=== PATIENT | male | born 1990 | race Caucasian/White ===

== ENCOUNTER 2016-12-28 15:54 | Emergency (ER) | payer OTHER ==
[~2016-12-28] VITALS: Ht 188 cm; Wt 57.8 kg
[~2016-12-28 15:54] MED LIST: ACETTAB14 PO; MAGN250T8 PO
[2016-12-28 15:56] VITALS: TEMP 36.7; Ht 188 cm; Wt 57.8 kg
[2016-12-28] MEDS ORDERED: SODIUM CHLORIDE 0.9% 1000ML 1,000 ML IV STA (16:38)
[2016-12-28] MEDS ORDERED: LORAZEPAM 0.5 MG TAB SL STA (16:38)
--- NOTE | 2016-12-28 16:42 | EMERGENCY ROOM VISIT NOTE ---
History Report prepared by Belinda: Velasquez Pierce Under the Supervision of: Dr. Jose Xavier M.D. First contact with patient: 16:32 Chief Complaint: CHEST PAIN Stated Complaint: CHEST PAINS,BACK AND L ARM PAIN,MARFANS SYNDROM Nursing Triage Summary: Intermittent CP last night into left arm and left shoulder. History of anxiety and thought it may be that. Also has been told he has a marker for Marfans syndrome and could be a dissection. History of Present Illness The patient is a 26 year old male with a history of anxiety who presents to the Emergency Room with complaints of intermittent left-sided chest pain that started last night. He says that the pain started on his left side, and would bounce around, and occasionally radiate to his left arm and left upper back. The patient describes the pain as sharp and stabbing. He notes that he first attributed his symptoms to his anxiety, but he was told a few years ago by a physician that he had all the physical markers of Marfan's syndrome, but he was never diagnosed. He says that he saw a water quality tester at the time, and everything checked out fine. The patient says that he has had some fatigue and shakiness as well. He states that he is here for "peace of mind". Currently, he says that the pain is coming and going. The patient denies any loss of consciousness, swelling in ankles, or recent falls or injuries. He says that he has had EKG's done and CT scans over the past couple years. The patient denies any recreational drug use. Source of History: patient Onset: Last night Position: chest (left) Quality: sharp, stabbing Timing: intermittent Associated Symptoms: + back pain, + fatigue, No LOC Note: Associated symptoms: Radiation of pain to left arm intermittently. Shakiness. Denies ankle swelling. Review of Systems See HPI for pertinent positives & negatives. A total of 10 systems reviewed and were otherwise negative. Past Medical & Surgical Medical Problems: (1) Anxiety (2) Marfan syndrome Family History Heart disease Social History Smoking Status: Current Every Day Smoker Marital Status: single Occupation Status: unemployed Current/Historical Medications Scheduled PRN Acetaminophen (Tylenol), 500 MG PO UD PRN for Pain or Fever Lorazepam (Ativan), 0.5-1 MG PO HS PRN for Anxiety Allergies Coded Allergies: No Known Allergies (Unverified , 07/19/15) Physical Exam Vital Signs Date Time Temp Pulse Resp B/P (MAP) Pulse Ox O2 Delivery O2 Flow Rate FiO2 12/28/16 18:39 73 16 100 12/28/16 18:00 51 16 116/61 98 Room Air 12/28/16 15:59 99 Room Air 12/28/16 15:56 36.7 85 16 134/77 97 Room Air Physical Exam GENERAL: Patient is moderately anxious appearing and in no acute distress. Marfanoid appearance. HEENT: No acute trauma, normocephalic atraumatic, mucous membranes moist, no nasal congestion, no scleral icterus. NECK: No stridor, no adenopathy, no meningismus, trachea is midline. LUNGS: No dyspnea. Clear to auscultation and equal bilaterally. No wheeze, no rhonchi. HEART: Regular rate and rhythm. No murmurs, rubs, gallops appreciated. ABDOMEN: Soft, nontender, bowel sounds positive, no masses appreciated, no peritonitis. BACK: No midline tenderness, no CVA tenderness EXTREMITIES: Long extremities, skinny. Normal motion all extremities, no cyanosis, no edema. NEUROLOGIC: Alert and oriented, no acute motor or sensory deficits, no focal weakness, cranial nerves grossly intact. SKIN: No rash, no jaundice, no diaphoresis. Medical Decision & Procedures ER Provider Diagnostic Interpretation: X ray results are stated below per my interpretation and the radiologist's interpretation. CHEST ONE VIEW PORTABLE CLINICAL HISTORY: Chest pain. Back pain. Marfan's syndrome. COMPARISON STUDY: Chest radiograph and CTA of the chest, abdomen and pelvis July 19, 2015. FINDINGS: There is no pneumothorax or pleural effusion. Cardiomediastinal silhouette is normal. There is no evidence of pulmonary edema. No consolidation is identified. The appearance of the chest is unchanged. IMPRESSION: No acute cardiopulmonary findings. Electronically signed by: Vincent Rocha M.D. 12/28/2016 5:53 PM Dictated Date/Time: 12/28/2016 5:52 PM Laboratory Results 12/28/16 16:50 Red Blood Count 5.22, Mean Corpuscular Volume 85.4, Mean Corpuscular Hemoglobin 31.6, Mean Corpuscular Hemoglobin Concent 37.0, Mean Platelet Volume 9.5, Neutrophils (%) (Auto) 58.2, Lymphocytes (%) (Auto) 27.0, Monocytes (%) (Auto) 9.2, Eosinophils (%) (Auto) 4.0, Basophils (%) (Auto) 1.4, Neutrophils # (Auto) 2.45, Lymphocytes # (Auto) 1.14, Monocytes # (Auto) 0.39, Eosinophils # (Auto) 0.17, Basophils # (Auto) 0.06 12/28/16 16:50 Test 12/28/16 16:50 White Blood Count 4.22 K/uL (4.8-10.8) Red Blood Count 5.22 M/uL (4.7-6.1) Hemoglobin 16.5 g/dL (14.0-18.0) Hematocrit 44.6 % (42-52) Mean Corpuscular Volume 85.4 fL (80-100) Mean Corpuscular Hemoglobin 31.6 pg (25-34) Mean Corpuscular Hemoglobin Concent 37.0 g/dl (32-36) Platelet Count 181 K/uL (130-400) Mean Platelet Volume 9.5 fL (7.4-10.4) Neutrophils (%) (Auto) 58.2 % Lymphocytes (%) (Auto) 27.0 % Monocytes (%) (Auto) 9.2 % Eosinophils (%) (Auto) 4.0 % Basophils (%) (Auto) 1.4 % Neutrophils # (Auto) 2.45 K/uL (1.4-6.5) Lymphocytes # (Auto) 1.14 K/uL (1.2-3.4) Monocytes # (Auto) 0.39 K/uL (0.11-0.59) Eosinophils # (Auto) 0.17 K/uL (0-0.5) Basophils # (Auto) 0.06 K/uL (0-0.2) RDW Standard Deviation 38.1 fL (36.4-46.3) RDW Coefficient of Variation 12.3 % (11.5-14.5) Immature Granulocyte % (Auto) 0.2 % Immature Granulocyte # (Auto) 0.01 K/uL (0.00-0.02) D-Dimer < 190 ug/L FEU (0-500) Anion Gap 3.0 mmol/L (3-11) Est Creatinine Clear Calc Drug Dose 103.3 ml/min Estimated GFR () 136.1 Estimated GFR (Non- 117.5 BUN/Creatinine Ratio 7.8 (10-20) Calcium Level 9.8 mg/dl (8.5-10.1) Troponin I < 0.015 ng/ml (0-0.045) Laboratory results as reviewed by me. Medications Administered Medications (Trade) Dose Ordered Sig/Olena Route Start Time Stop Time Status Last Admin Dose Admin Sodium Chloride 1,000 ml @ 999 mls/hr Q1H1M STAT IV 12/28/16 16:38 12/28/16 17:38 DC 12/28/16 17:18 999 MLS/HR Lorazepam (Ativan Tab) 0.5 mg NOW STAT SL 12/28/16 16:38 12/28/16 16:40 DC 12/28/16 17:17 0.5 MG ECG Indication: chest pain Rate (beats per minute): 83 Rhythm: normal sinus Findings: no acute ischemic change, no ectopy, other (incomplete RBBB) Change: no significant change (compared to 07/19/15) ED Course 1633: The patient was evaluated in room A12B. A complete history and physical exam was performed. 1638: Ordered Ativan Tab 0.5 mg SL, NSS 1000 ml @ 999 mls/hr IV. 1820: I reevaluated the patient and he is feeling well and much better after the Ativan. He will see his primary care physician later this week. The patient verbally expressed understanding and agreement of the treatment plan. The patient will be discharged. Medical Decision Differential: Cardiac Ischemia (STEMI, NSTEMI, Unstable Angina, etc), Aortic Dissection, Arrhythmia, Pulmonary Embolism, Pneumonia, Pneumothorax, MSK, Infectious, Pericarditis/Myocarditis, Esophageal Rupture, Gastrointestinal, amongst other pathologies entertained. 26 yr old male with Marfan findings though previous echo and CT chest with normal aorta arrives anxious regarding periodic vague chest pain to back/ shoulder that he admits is similar to previous anxiety episode. He has normal cxr, normal labs (including normal dimer), and normal EKG. He has resolution of symptoms and feeling better with ativan. Notes ativan worked well in past for anxiety issues and will follow with PCP later this week for re-eval. Reviewed symptoms requiring return. With unchanged CXR, lack of further symptoms, and adding on fact dimer is negative I feel dissection is very low and that risks CTA outweigh benefits. Medication Reconcilliation Current Medication List: was personally reviewed by me Blood Pressure Screening Patient's blood pressure: Normal blood pressure Impression Primary Impression: Intermittent left-sided chest pain Additional Impressions: Anxiety about health Anxiety Stress Scribe Attestation The scribe's documentation has been prepared under my direction and personally reviewed by me in its entirety. I confirm that the note above accurately reflects all work, treatment, procedures, and medical decision making performed by me. Departure Information Dispostion Home / Self-Care Prescriptions Lorazepam (ATIVAN) 1 Mg Tab 0.5-1 MG PO HS Y for Anxiety, #10 TAB Prov: Jose Xavier M.D. 12/28/16 Referrals No Doctor, Assigned (PCP) Patient Instructions Anxiety Disorder, ED Chest Pain Atypical Unkn Cause, My [facility] Additional Instructions You have received a benzodiazepine anxiety medication prescription. These medications may cause drowsiness and should not be used with other sedative medications. Do not drive, drink alcohol, perform dangerous activities, nor make important decisions after taking these medications. FPC use or inappropriate use may lead to addiction. Problem Qualifiers
[2016-12-28 17:01] LABS: BASO % 1.4 %; BASO ABS # 0.06 K/uL (0-0.2); COMPLETE YES; HEMATOCRIT 44.6 % (42-52); IG% 0.2 %; LYMPH ABS # 1.14 K/uL (1.2-3.4); MEAN CELL VOLUME 85.4 fL (80-100); MEAN CORPUSCULAR HEMOGLOBIN 31.6 pg (25-34); MEAN PLATELET VOLUME 9.5 fL (7.4-10.4); MONO % 9.2 %; NEUT % 58.2 %; PLATELET COUNT 181 K/uL (130-400); RED BLOOD COUNT 5.22 M/uL (4.7-6.1); WHITE BLOOD COUNT 4.22 K/uL (4.8-10.8)
[2016-12-28 17:17] LABS: BLOOD UREA NITROGEN 7 mg/dl (7-18); BUN/CREATININE RATIO 7.8 (10-20); CALCIUM 9.8 mg/dl (8.5-10.1); CARBON DIOXIDE 31 mmol/L (21-32); CHLORIDE 107 mmol/L (98-107); CREATININE 0.87 mg/dl (0.60-1.40); GLUCOSE 92 mg/dl (70-99); POTASSIUM 3.8 mmol/L (3.5-5.1); SODIUM 141 mmol/L (136-145)
--- NOTE | 2016-12-28 17:55 | DIAGNOSTIC IMAGING REPORT ---
CHEST ONE VIEW PORTABLE CLINICAL HISTORY: Chest pain. Back pain. Marfan's syndrome. COMPARISON STUDY: Chest radiograph and CTA of the chest, abdomen and pelvis July 19, 2015. FINDINGS: There is no pneumothorax or pleural effusion. Cardiomediastinal silhouette is normal. There is no evidence of pulmonary edema. No consolidation is identified. The appearance of the chest is unchanged. IMPRESSION: No acute cardiopulmonary findings. Electronically signed by: Vincent Rocha M.D. 12/28/2016 5:53 PM Dictated Date/Time: 12/28/2016 5:52 PM
[2016-12-28 18:00] VITALS: BP 116/61
[2016-12-28] MEDS ORDERED: ATV/1 PO (18:24)
[2016-12-28 18:39] VITALS: PULSE 73; O2SAT 100
== END 2016-12-28 18:39 | disposition home or self-care (01) ==
LOC: C.EDB 15:56 → C.EDA 18:39
DX: R07.9 Chest pain, unspecified (principal); M79.602 Pain in left arm; M54.9 Dorsalgia, unspecified; Q87.40 Marfan syndrome, unspecified; F17.210 Nicotine dependence, cigarettes, uncomplicated; F43.9 Reaction to severe stress, unspecified

== ENCOUNTER 2017-02-16 14:42 | Emergency (ER) | payer OTHER ==
[~2017-02-16] VITALS: Ht 188 cm; Wt 63.3 kg
[2017-02-16 14:47] VITALS: TEMP 36.8; Ht 188 cm; Wt 63.3 kg
[2017-02-16] MEDS ORDERED: SODIUM CHLORIDE 0.9% 1000ML 1,000 ML IV STA (15:21)
[2017-02-16] MEDS ORDERED: DiphenhydrAMINE HCL 50 MG/ML VIAL IV STA (15:21)
[2017-02-16] MEDS ORDERED: PROCHLORPERAZINE 5 MG/ML 2 ML VIAL IV STA (15:21)
[2017-02-16 15:41] LABS: BASO % 1.2 %; BASO ABS # 0.07 K/uL (0-0.2); COMPLETE YES; HEMATOCRIT 43.3 % (42-52); IG% 0.4 %; LYMPH % 24.1 %; LYMPH ABS # 1.37 K/uL (1.2-3.4); MEAN CELL VOLUME 87.5 fL (80-100); MEAN CORPUSCULAR HEMOGLOBIN 30.5 pg (25-34); MEAN CORPUSCULAR HGB CONC 34.9 g/dl (32-36); MEAN PLATELET VOLUME 10.1 fL (7.4-10.4); MONO % 6.5 %; NEUT % 63.8 %; PLATELET COUNT 203 K/uL (130-400); RED BLOOD COUNT 4.95 M/uL (4.7-6.1); WHITE BLOOD COUNT 5.69 K/uL (4.8-10.8)
[2017-02-16 16:02] LABS: BUN/CREATININE RATIO 7.1 (10-20); CALCIUM 9.7 mg/dl (8.5-10.1); CREATININE 0.77 mg/dl (0.60-1.40); POTASSIUM 3.9 mmol/L (3.5-5.1)
[2017-02-16] MEDS ORDERED: CITA20TA9 PO (16:39)
[2017-02-16] MEDS ORDERED: ACET-1256 PO (16:49)
[2017-02-16] MEDS ORDERED: OPTIRAY 320 IV PRN (17:00)
--- NOTE | 2017-02-16 17:09 | DIAGNOSTIC IMAGING REPORT ---
NECK ANGIO WITH CONTRAST, ANGIOGRAPHY HEAD COMBO CLINICAL HISTORY: 26 years-old Male presenting with neck pain, headache, concern for dissection. TECHNIQUE: Multidetector CT angiography of the head and neck was performed before and after the administration of intravenous contrast. 3-D volumetric and/or maximum intensity projection (MIP) images were subsequently reconstructed for review. IV contrast: 116 mL of Optiray 320. A dose lowering technique was used consistent with the principles of ALARA (as low as reasonably achievable). Stenosis measurements were based on NASCET-like criteria. COMPARISON: None. CT DOSE (mGy.cm): The estimated cumulative dose is 998.20 mGy.cm. FINDINGS: Component Assembler Supervisor topogram: Unremarkable. Initial noncontrast CT head: Ventricles and sulci normal in size. Brain parenchyma normal in appearance with preserved franco-white differentiation. No mass effect or midline shift. No hemorrhage or acute territorial infarct. No extra-axial fluid collection. Paranasal sinuses and mastoid air cells clear. Calvarium intact. CTA head: Anterior circulation including the intracranial portions of the internal carotid arteries, anterior and middle cerebral arteries, and anterior communicating arteries are patent. Posterior circulation demonstrates a right dominant vertebral artery. Basilar artery, bilateral superior cerebellar, and posterior cerebral arteries patent. Bilateral posterior communicating arteries patent. No aneurysm, stenosis, or occlusion. Cortical veins and dural venous sinuses patent. CTA neck: Three-vessel aortic arch with patent origins of the major branch vessels. Bilateral common and internal carotid arteries patent without evidence of dissection or luminal irregularity. No vessel occlusion. Right dominant vertebral artery. Bilateral vertebral arteries demonstrate patent origins and courses without evidence of dissection or luminal irregularity. Lung apices clear. Cervical spine within normal limits. IMPRESSION: 1. No acute intracranial pathology. 2. No evidence of aneurysm, stenosis, or occlusion in the intracranial vessels. 3. No evidence of dissection in the cervical vessels. Electronically signed by: Jf Garcia M.D. 02/16/2017 5:07 PM Dictated Date/Time: 02/16/2017 4:59 PM
[2017-02-16 17:31] VITALS: BP 121/68; PULSE 72; O2SAT 99
--- NOTE | 2017-02-16 19:56 | EMERGENCY ROOM VISIT NOTE ---
History Report prepared by Belinda: Sudha Webster Under the Supervision of: Dr. Donald Good M.D. First contact with patient: 15:03 Chief Complaint: NECK PAIN Stated Complaint: NECK PAIN/STIFFNESS, HEAD/FACE PRESSURE, ANXIETY History of Present Illness The patient is a 26 year old male who presents to the Emergency Room with complaints of persistent neck pain starting 6 days ago. The patient has a history of anxiety which started after he was told that he might have Marfan syndrome. He has had a lot of concerns about his health since then and started having more frequent panic attacks. Starting 6 days ago, he has noticed neck pain and stiffness which are very concerning to him. He was seen by his doctor who started him on Celexa and recommended stretching. He has pain and stiffness in the left back part of his neck which radiates down to his shoulder and back. He has also had a pressure in his left jewish which radiates to his left ear, jaw, and forehead. He initially thought that he might have a tension headache, but has become concerned that he has something more serious. His neck pain worsens with turning his head. His headache worsened with activity, bending over , light, and sound. He took hydrocodone yesterday which did help slightly. He has been taking over the counter medications to no significant relief. He has had some lightheadedness with standing at times. He denies any vision changes, numbness, or weakness. He denies any fall or injury. 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 He has tried using different pillows when sleeping. He denies any weight lifting or significant exertion. He denies any family history of aneurysms or Marfan syndrome. He has had occasional headaches in the past usually due to stress and dehydration which he can usually treat himself. He denies homicidal or suicidal ideation. He does not feel he needs inpatient psychiatric care but would like to speak to somebody regarding his anxiety. Source of History: patient Onset: 6 days ago Position: neck Quality: other (stiffness) Timing: other (persistent) Modifying Factors (Worsening): movement Associated Symptoms: + headache, No weakness, No numbness Note: Pt reports lightheadedness. Pt denies vision change. Review of Systems See HPI for pertinent positives & negatives. A total of 10 systems reviewed and were otherwise negative. Past Medical & Surgical Medical Problems: (1) Anxiety (2) Marfan syndrome Family History Heart disease Social History Smoking Status: Current Every Day Smoker Marital Status: single Occupation Status: unemployed Current/Historical Medications Scheduled Citalopram Hydrobromide (Celexa), 20 MG PO DAILY Scheduled PRN Acetaminophen (Tylenol), 500 MG PO UD PRN for Pain or Fever Allergies Coded Allergies: No Known Allergies (Unverified , 07/19/15) Physical Exam Vital Signs Date Time Temp Pulse Resp B/P (MAP) Pulse Ox O2 Delivery O2 Flow Rate FiO2 02/16/17 17:31 72 14 121/68 99 02/16/17 16:49 65 15 129/71 98 Room Air 02/16/17 14:47 36.8 78 18 154/74 96 Room Air Physical Exam Constitutional: Vital signs reviewed. Eyes: Pupils are equal round reactive to light. Conjunctiva are noninjected. ENT: Pharynx is clear without erythema or exudate. Mucous membranes are moist. Neck supple without meningeal signs. Respiratory: Clear to auscultation bilaterally. Breath sounds are equal bilaterally. Cardiovascular: Regular rate and rhythm. No rubs or gallops. Equal pulses. No carotid bruits. GI: Soft, nondistended and nontender. Bowel sounds are present. No pulsatile masses. Musculoskeletal: No peripheral edema. No lower extremity tenderness. Integumentary: No cyanosis. Neurological: The patient is awake and alert. Cranial nerves II-XII are intact. Motor is 5 out of 5 all extremities. Sensation is intact to light touch all extremities. Normal speech. No pronator drift. Psychiatric: Anxious. Medical Decision & Procedures ER Provider Diagnostic Interpretation: Radiology results as stated below per my review and the radiologist's interpretation: NECK ANGIO WITH CONTRAST, ANGIOGRAPHY HEAD COMBO CLINICAL HISTORY: 26 years-old Male presenting with neck pain, headache, concern for dissection. TECHNIQUE: Multidetector CT angiography of the head and neck was performed before and after the administration of intravenous contrast. 3-D volumetric and/or maximum intensity projection (MIP) images were subsequently reconstructed for review. IV contrast: 116 mL of Optiray 320. A dose lowering technique was used consistent with the principles of ALARA (as low as reasonably achievable). Stenosis measurements were based on NASCET-like criteria. COMPARISON: None. CT DOSE (mGy.cm): The estimated cumulative dose is 998.20 mGy.cm. FINDINGS: Rental Car Ferry Driver topogram: Unremarkable. Initial noncontrast CT head: Ventricles and sulci normal in size. Brain parenchyma normal in appearance with preserved franco-white differentiation. No mass effect or midline shift. No hemorrhage or acute territorial infarct. No extra-axial fluid collection. Paranasal sinuses and mastoid air cells clear. Calvarium intact. CTA head: Anterior circulation including the intracranial portions of the internal carotid arteries, anterior and middle cerebral arteries, and anterior communicating arteries are patent. Posterior circulation demonstrates a right dominant vertebral artery. Basilar artery, bilateral superior cerebellar, and posterior cerebral arteries patent. Bilateral posterior communicating arteries patent. No aneurysm, stenosis, or occlusion. Cortical veins and dural venous sinuses patent. CTA neck: Three-vessel aortic arch with patent origins of the major branch vessels. Bilateral common and internal carotid arteries patent without evidence of dissection or luminal irregularity. No vessel occlusion. Right dominant vertebral artery. Bilateral vertebral arteries demonstrate patent origins and courses without evidence of dissection or luminal irregularity. Lung apices clear. Cervical spine within normal limits. IMPRESSION: 1. No acute intracranial pathology. 2. No evidence of aneurysm, stenosis, or occlusion in the intracranial vessels. 3. No evidence of dissection in the cervical vessels. Electronically signed by: Jf Garcia M.D. 02/16/2017 5:07 PM Dictated Date/Time: 02/16/2017 4:59 PM Laboratory Results 02/16/17 15:30 Red Blood Count 4.95, Mean Corpuscular Volume 87.5, Mean Corpuscular Hemoglobin 30.5, Mean Corpuscular Hemoglobin Concent 34.9, Mean Platelet Volume 10.1, Neutrophils (%) (Auto) 63.8, Lymphocytes (%) (Auto) 24.1, Monocytes (%) (Auto) 6.5, Eosinophils (%) (Auto) 4.0, Basophils (%) (Auto) 1.2, Neutrophils # (Auto) 3.63, Lymphocytes # (Auto) 1.37, Monocytes # (Auto) 0.37, Eosinophils # (Auto) 0.23, Basophils # (Auto) 0.07 02/16/17 15:30 Test 02/16/17 15:30 White Blood Count 5.69 K/uL (4.8-10.8) Red Blood Count 4.95 M/uL (4.7-6.1) Hemoglobin 15.1 g/dL (14.0-18.0) Hematocrit 43.3 % (42-52) Mean Corpuscular Volume 87.5 fL (80-100) Mean Corpuscular Hemoglobin 30.5 pg (25-34) Mean Corpuscular Hemoglobin Concent 34.9 g/dl (32-36) Platelet Count 203 K/uL (130-400) Mean Platelet Volume 10.1 fL (7.4-10.4) Neutrophils (%) (Auto) 63.8 % Lymphocytes (%) (Auto) 24.1 % Monocytes (%) (Auto) 6.5 % Eosinophils (%) (Auto) 4.0 % Basophils (%) (Auto) 1.2 % Neutrophils # (Auto) 3.63 K/uL (1.4-6.5) Lymphocytes # (Auto) 1.37 K/uL (1.2-3.4) Monocytes # (Auto) 0.37 K/uL (0.11-0.59) Eosinophils # (Auto) 0.23 K/uL (0-0.5) Basophils # (Auto) 0.07 K/uL (0-0.2) RDW Standard Deviation 41.3 fL (36.4-46.3) RDW Coefficient of Variation 12.8 % (11.5-14.5) Immature Granulocyte % (Auto) 0.4 % Immature Granulocyte # (Auto) 0.02 K/uL (0.00-0.02) Anion Gap 5.0 mmol/L (3-11) Est Creatinine Clear Calc Drug Dose 127.9 ml/min Estimated GFR () 143.1 Estimated GFR (Non- 123.5 BUN/Creatinine Ratio 7.1 (10-20) Calcium Level 9.7 mg/dl (8.5-10.1) Laboratory results as reviewed by me. Medications Administered Medications (Trade) Dose Ordered Sig/Olena Route Start Time Stop Time Status Last Admin Dose Admin Sodium Chloride 1,000 ml @ 999 mls/hr Q1H1M STAT IV 02/16/17 15:21 02/16/17 16:21 DC 02/16/17 15:42 999 MLS/HR Prochlorperazine Edisylate (Compazine Inj) 5 mg NOW STAT IV 02/16/17 15:21 02/16/17 15:24 DC 02/16/17 15:41 5 MG Diphenhydramine HCl (Benadryl Inj) 50 mg NOW STAT IV 02/16/17 15:21 02/16/17 15:24 DC 02/16/17 15:41 50 MG ED Course 1506: The patient was evaluated in room A8. A complete history and physical exam was performed. 1521: Benadryl Inj 50 mg IV, Compazine Inj 5 mg IV, NSS 1000 ml @ 999 mls/hr IV. 1714: The mental health rehabilitation caseworker has met with the patient and recommends outpatient therapy. 1720: I reevaluated the patient. He is feeling much better. I discussed the test results with him. He verbalized agreement of the treatment plan. He was discharged home. Medical Decision This is a 26-year-old male who presents with neck and head pain. Differential diagnosis includes tension headache, migraine headache, mass, aneurysm, dissection. I did perform a limited focused review of portions of the patient' s old chart on the electronic medical record. The patient has had no recent pertinent visits to this hospital. I did evaluate the patient as noted above. The patient is presenting with head and neck pain. His symptoms seem consistent with some type of tension headache and strain to his neck. He is however very anxious about a possible life threatening etiology. He is concerned he may have Marfan syndrome although he has never been diagnosed with this. He does state that he has worsening headache with exertion and was concerned about an aneurysm. IV access was established. I did treat the patient with IV Compazine and Benadryl. He was also given normal saline IV. I did order and review the patient's blood work as noted in the electronic medical record. I did order a CT angiogram of the head and neck. I did review the images myself as well as the radiology report as described above. There is no evidence of aneurysm, dissection, mass or bleed. No acute intracranial processes noted. I did reassess the patient. He is feeling much better. I did discuss the test results with the patient. The mental health rehabilitation caseworker did speak to him as well. He will follow up for outpatient mental health care and was advised follow with his doctor. He was discharged in good condition. Medication Reconcilliation Current Medication List: was personally reviewed by me Blood Pressure Screening Patient's blood pressure: Elevated blood pressure Blood pressure disposition: Referred to PCP Impression Primary Impression: Acute headache Additional Impressions: Neck pain on left side Anxiety Scribe Attestation The scribe's documentation has been prepared under my direct and personally reviewed by me in its entirety. I confirm that the note above accurately reflects all work, treatment, procedures, and medical decision making performed by me. Departure Information Dispostion Home / Self-Care Referrals No Doctor, Assigned (PCP) Forms HOME CARE DOCUMENTATION FORM, IMPORTANT VISIT INFORMATION, WORK / SCHOOL INSTRUCTIONS Patient Instructions Anxiety Body Response, Headache Pain, My [facility] Additional Instructions You have been examined and treated today on an emergency basis only. This is not a substitute for, or an effort to provide, complete comprehensive medical care. It is impossible to recognize and treat all injuries or illnesses in a single emergency department visit. It is therefore important that you follow up closely with your physician. Call as soon as possible for an appointment. Return for worsening symptoms or if you develop fever, vomiting, numbness or weakness on one side of your body, problems with your vision, or any other concerning symptoms. Problem Qualifiers Primary Impression: Acute headache Headache type: unspecified Intractability: not intractable Qualified Codes : R51 - Headache
== END 2017-02-16 17:30 | disposition home or self-care (01) ==
LOC: C.EDB 14:43 → C.EDA 17:30
DX: R51 Headache (principal); M54.2 Cervicalgia; F41.9 Anxiety disorder, unspecified; Q87.40 Marfan syndrome, unspecified; F17.200 Nicotine dependence, unspecified, uncomplicated